=== PATIENT | female | born 1995 | race Caucasian/White ===

== ENCOUNTER 2018-10-30 09:57 | Inpatient (IN) | payer OTHER ==
[2018-10-30] VITALS (42 sets, daily range): BP systolic 106–182; BP diastolic 58–90; PULSE 71–125; TEMP 97.8–100.6
[~2018-10-30] VITALS: Ht 157.5 cm; Wt 70.5 kg
[~2018-10-30 09:57] MED LIST: NO HOME MEDICATIONS; NORCO 325 MG-51 TAB PO
--- NOTE | 2018-10-30 10:05 | NUR ---
Patient ambulatory to LR4, changed into gown, FHR/TOCO monitors placed and explained. Patient states "started noticing leaking of fluid around 0500 this morning and then contractions started" denies vaginal bleeding. 1010: SVE-2//-3 amniotest difficult to read. No fluid noted with check. Assessment completed and VSS. Plan of care discussed. Dr Fortune at nurses station and notified of patient. Order for amniosure at this time. Amniosure done and sent to lab. Patient tolerates well and will continue to monitor.
[2018-10-30] MEDS ORDERED: PRENATAL MVI (10:18)
--- NOTE | 2018-10-30 10:35 | NUR ---
1035: Amniosure positive and admission orders per Dr. Fortune who continues to sit at nurses station and review FHR strip.
--- NOTE | 2018-10-30 11:00 | NUR ---
Report from Gisele REY to assume care of patient at this time. at bedside, SVE /-1 per provider. Patient requesting epidural placement. IV started at 1110 in right hand by Dennis REY, LR bolusing. Consents signed.
[2018-10-30 11:26] LABS: BASO % 0.2 % (0.0-2.0); EOS % 0.2 % (0-4.0); GRAN # 13.9 (1.4-6.5); HEMOGLOBIN 11.3 g/dl (12.5-16.0); LYMPH # 1.5 (1.2-3.4); LYMPH % 9.1 % (20.0-51.0); MEAN CELL VOLUME 79 fl (80.0-100.0); MEAN CORPUSCULAR HEMOGLOBIN 26 pg (27.0-31.0); MEAN CORPUSCULAR HGB CONC 33 g/dl (33.0-37.0); MEAN PLATELET VOLUME 11.3 fl (7.4-10.4); MONO # 1.1 (0.1-0.6); MONO % 6.4 % (1.7-9.3); PLATELET COUNT 250 K/mm3 (130-400); RED BLOOD COUNT 4.33 M/mm3 (4.10-5.30)
[2018-10-30 11:40] LABS: HEMATOCRIT 34.1 % (37.0-47.0)
--- NOTE | 2018-10-30 12:15 | NUR ---
1145: Farhat REGALADO at bedside. Patient sitting up for epidural. 1150: Lidocaine. 1152: Single Shot given by Farhat REGALADO, no adverse reactions noted. 1153: Epidural Catheter placed. 1200: Test Dose given by Farhat REGALADO, no adverse reactions noted. Patient repositioned to left tilt. to bedside. SVE unchanged, /-1, AROM of forebag by provider. Plan of care discussed. Questions answered. Call light within reach.
--- NOTE | 2018-10-30 12:40 | NUR ---
Patient comfortable with epidural. Reyna catheter placed. SVE /-1. Patient repositioned to right lateral with peanut ball in place. Encouraged to rest. Call light within reach.
--- NOTE | 2018-10-30 13:35 | NUR ---
SVE unchanged per . Patient repositioned to left lateral with peanut ball in place. Pitocin started per orders. Encouraged to rest. Call light within reach.
--- NOTE | 2018-10-30 14:15 | NUR ---
Patient comfortable, visiting with family at bedside. Patient repositioned to right tilt, HOB elevated, peanut ball in place. Call light within reach.
--- NOTE | 2018-10-30 15:20 | NUR ---
Patient visiting with friend at bedside. Comfortable with epidural. Patient repositioned to left tilt, HOB elevated, peanut ball in place. Denies pain or needs at this time. Call light within reach.
--- NOTE | 2018-10-30 16:15 | NUR ---
Patient resting comfortably and visiting with friend at bedside. SVE 6-7/100/0. Pericare performed. Repositioned to right lateral, left leg on stirrup. Encouraged to rest. Denies pain or needs. Call light within reach.
--- NOTE | 2018-10-30 16:50 | NUR ---
Patient repositioned to left lateral with leg in stirrup. Plan of care discussed, questions answered. at bedside. Call light within reach.
--- NOTE | 2018-10-30 17:30 | NUR ---
SVE 7-8/100/0, bloody show noted with exam. Pericare performed. Patient repositioned to "braulio" position. Instructed to notify RN with rectal pressure or urge to push. Family at bedside. Call light within reach.
--- NOTE | 2018-10-30 18:20 | NUR ---
Patient reports pressure with contractions. SVE 8/+1. Report to Krysten REY to assume care of patient at this time.
--- NOTE | 2018-10-30 20:00 | NUR ---
1814- Report taken from KRISSY Solis. Pitocin currently infusing at 12mU. 1914- at bedside. SVE 9/100/0. MD starts to push intermittently with contractions. RN remains at bedside. FHT reassuring. 1929- continues to push with patient. Reyna out. Patient has N/V. 1934- RN continues to push intermittently with contractions with patient. 1944- at bedside and pushing with patient. Room set up for delivery. 1949- IV pulled out while pushing. Fluids off. Pitocin off. 1953- of viable baby girl. Cord clamped and cut. Cord blood obtained. 1955- Spontaneous delivery of placenta. Fundus massaged to firm by and RN. Clots noted with fundal check. 2nd degree perineal laceration with right MLE repaired by . Pericare provided. Ice pack applied. 1999- IV restarted in LW. Pitocin infusing at 333 ml/hr. LR infusing. Fundus firm with small amount of bleeding and minimal clots. Start of PP Recovery. 2029- Patient noted to have N/V.
[2018-10-31] VITALS: BP 119/56; PULSE 102; TEMP 99.3
[2018-10-31 04:00] VITALS: BP 123/73; PULSE 78; TEMP 98.2
[2018-10-31 07:35] VITALS: BP 113/66; PULSE 85; TEMP 98.5
[2018-10-31 11:20] VITALS: BP 113/74; PULSE 82; TEMP 98.1
[2018-10-31 16:16] VITALS: BP 103/70; PULSE 89; TEMP 97.7
[2018-10-31 21:30] VITALS: BP 101/64; PULSE 86; TEMP 97.6
--- NOTE | 2018-11-01 08:30 | NUR ---
Rests in bed, alert. Visits with family. Denies any needs at this time.
[2018-11-01 09:15] VITALS: BP 112/72; PULSE 70; TEMP 97.7
[2018-11-01] MEDS ORDERED: IBU800 M1 PO (10:59)
[2018-11-01] MEDS ORDERED: PERCOCET 325 MG1 TA2 PO (10:59)
--- NOTE | 2018-11-01 11:07 | NUR ---
Initial visit; Mom thanked for offering congratulations for the of her daughter. thanked her for choosing [facility].
--- NOTE | 2018-11-01 11:30 | NUR ---
1210 Request pain medication. Percocet 5/325 mg p.o. given as ordered and per request.
--- NOTE | 2018-11-01 14:30 | NUR ---
Discharge instructions given. Verbalizes understanding.
== END 2018-11-01 14:30 | disposition home or self-care (01) | DRG 807 ==
LOC: LDRO 09:57 → LDR 10:05 → OB 22:00
PROVIDERS: Obstetrics & Gynecology; ADMIT Student in an Organized Health Care Education/Training Program
PROC: 10E0XZZ Delivery of Products of Conception, External Approach (ICD-10-PCS; principal; 2018-10-30)
PROC: 0W8NXZZ Division of Female Perineum, External Approach (ICD-10-PCS; 2018-10-30)
DX: O42.02 Full-term premature rupture of membranes, onset of labor within 24 hours of rupture (principal); Z37.0 Single live birth; Z3A.38 38 weeks gestation of pregnancy; O62.0 Primary inadequate contractions; E78.00 Pure hypercholesterolemia, unspecified
CPT/HCPCS: J2590; J2795; J7120